=== PATIENT | male | born 1995 | race Asian ===

== ENCOUNTER → 2017-09-12 | Outpatient (CLI) | payer OTHER ==
--- NOTE | 2017-09-12 15:02 | DIAGNOSTIC IMAGING REPORT ---
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 Edema. TECHNIQUE: Venous Doppler COMPARISON STUDY: None FINDINGS: Normal venous Doppler evaluation of the leg. No evidence for deep venous thrombosis. Several posterior thigh varicosities which are patent. IMPRESSION: 1. No evidence for deep venous thrombosis. 2. Several patent venous varicosities The above report was generated using voice recognition software. It may contain grammatical, syntax or spelling errors. Electronically signed by: Jamison Rasheed M.D. 09/12/2017 3:00 PM Dictated Date/Time: 09/12/2017 2:59 PM
== END | disposition home or self-care (01) ==
LOC: C.ULTR 14:09
PROVIDERS: ATTEND Internal Medicine
DX: I83.92 Asymptomatic varicose veins of left lower extremity (principal)